=== PATIENT | male | born 1995 | race Caucasian/White ===

== ENCOUNTER 2019-07-28 18:48 | Emergency (ER) | payer MEDICAID ==
[~2019-07-28] VITALS: Ht 170.2 cm; Wt 67.0 kg
[2019-07-28] MEDS ORDERED: PEPTO BISMOL (19:02)
[2019-07-28] MEDS ORDERED: VISCOUS LIDOCAINE 2% 15 ML UDC PO STA (20:30)
[2019-07-28] MEDS ORDERED: MAGNESIUM/ALUMINUM HYDROXIDE/SIMETHICONE 30ML UDC PO STA (20:30)
[2019-07-28] MEDS ORDERED: FAMOTIDINE 20MG/2ML VIAL IV STA (20:30)
[2019-07-28] MEDS ORDERED: ONDANSETRON HCL 4MG/2ML INJ IV STA (20:30)
[2019-07-28] MEDS ORDERED: SODIUM CHLORIDE 0.9% 1,000 ML IV ONE (20:30)
[2019-07-28 20:54] LABS: BASOPHILS % 0.4 % (0.0-2.0); EOSINOPHILS % 1.1 % (0.0-5.0); HEMATOCRIT. 45.8 % (42.0-52.0); HEMOGLOBIN. 16.2 g/dL (14.0-18.0); LYMPHOCYTES % 22.6 % (20.0-50.0); MEAN CORPUSCULAR HEMOGLOBIN 30.4 pg (28.0-32.0); MEAN CORPUSCULAR VOLUME 86.1 fL (80.0-94.0); MEAN PLATELET VOLUME 7.4 fl (7.4-10.4); MONOCYTES % 10.7 % (2.0-8.0); NEUTROPHILS % 65.2 % (40.0-76.0); PLATELET 230 x1000/uL (130-400); RED BLOOD CELL COUNT 5.32 mill/uL (4.7-6.1); RED CELL DISTRIBUTION WIDTH 13.3 % (11.6-14.6)
[2019-07-28 20:58] LABS: CHLORIDE 104 mEq/L (98-107)
[2019-07-28 21:21] LABS: CLARITY URINE CLEAR (CLEAR); COLOR URINE YELLOW (YELLOW); KETONES URINE NEGATIVE (NEGATIVE); LEUKOCYTE ESTERASE URINE NEGATIVE (NEGATIVE); NITRITE URINE NEGATIVE (NEGATIVE); OCCULT BLOOD URINE NEGATIVE (NEGATIVE); PROTEIN URINE NEGATIVE (NEGATIVE); SPECIFIC GRAVITY URINE 1.004 (1.005-1.030); UROBILINOGEN URINE 0.2 E.U./dL (0.2-1.0)
[2019-07-29 00:15] VITALS: BP 107/71
== END 2019-07-29 00:26 | disposition home or self-care (01) ==
LOC: ER 18:48
DX: R10.13 Epigastric pain (principal)
CPT/HCPCS: 36415; 80053; 81003; 83690; 85025; 96361; 96374; 96375; 99284; J2405; J3490; J7030

== ENCOUNTER 2021-01-13 13:44 | Emergency (ER) | payer MEDICAID, OTHER ==
[~2021-01-13] VITALS: Ht 172.7 cm; Wt 71.6 kg
[~2021-01-13 13:44] MED LIST: PEPTO BISMOL
[2021-01-13] MEDS ORDERED: KETOROLAC 60MG/2ML VIAL IM ONE (14:30)
[2021-01-13] MEDS ORDERED: IBUP-2029 MT (15:34)
[2021-01-13 16:05] VITALS: BP 137/76
== END 2021-01-13 16:06 | disposition home or self-care (01) ==
LOC: ER 13:44
DX: R51.9 Headache, unspecified (principal)
CPT/HCPCS: 96372; 99283; J1885

== ENCOUNTER 2023-04-29 16:28 | Emergency (ER) | payer MEDICAID ==
[~2023-04-29] VITALS: Ht 177.8 cm; Wt 66.0 kg
[~2023-04-29 16:28] MED LIST changes: +IBUP-2029 MT
[2023-04-29 16:40] VITALS: BP 112/78; PULSE 98; RESP 18; TEMP 98.6; O2SAT 100
[2023-04-29] MEDS ORDERED: P20 MT (19:10)
[2023-04-29] MEDS ORDERED: CETI10TA11 MT (19:10)
[2023-04-29] MEDS ORDERED: EPIN0.3P3 IM (19:11)
== END 2023-04-29 19:43 | disposition home or self-care (01) ==
LOC: ER 16:37
DX: R21 Rash and other nonspecific skin eruption (principal); Z79.899 Other long term (current) drug therapy
CPT/HCPCS: 99281; Z7610 ×2